=== PATIENT | male | born 1985 | race Caucasian/White ===

== ENCOUNTER 2019-06-25 17:08 | Emergency (ER) | payer OTHER ==
[~2019-06-25] VITALS: Ht 175.3 cm; Wt 86.2 kg
[2019-06-25] MEDS ORDERED: KEFLEX500 M1 PO (19:57)
[2019-06-25] MEDS ORDERED: PERCOCET 5-3251 EACH PO (20:00)
[2019-06-25 20:09] VITALS: BP 130/87
--- NOTE | 2019-06-27 20:18 | O ---
[facility] [address] [address] OPERATIVE REPORT Name: MIKALA TERRELL Room #: DEP Ramiro#: [id number] Admission: 06/25/19 Attend Phys: Discharge: 06/25/19 Date of : 83 Report #: [id number] THIS REPORT FOR: //name// CC: Damon Sharma physician/PCP DATE OF SERVICE: 06/25/2019 SERVICE: Orthopedics. FACILITY: [facility]. SURGEON: Rafal Daniel MD FIELD TECHNICIAN: None. PREOPERATIVE DIAGNOSES: 1. Table saw injury, left hand. 2. Open fractures of the left thumb, proximal and middle phalanx. 3. Soft tissue injury, left index finger. POSTOPERATIVE DIAGNOSES: 1. Table saw injury, left hand. 2. Open fractures of the left thumb, proximal and middle phalanx. 3. Soft tissue injury, left index finger. PROCEDURES: 1. Irrigation and debridement to bone, left thumb. 2. Irrigation and debridement of skin, subcutaneous tissues and fascia, left index finger. COMPLICATIONS: None. DRAINS: None. SPECIMENS: None. FINDINGS: 1. Ruptured flexor tendon and comminuted fractures of the thumb. 2. Flexion intact to the index finger, deficient in extension. HISTORY AND INDICATIONS: The patient is a 34-year-old right-hand dominant gentleman who sustained a table saw injury to his left hand at work. 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 A board was stuck, he went to release it and then at that point the board released and pulled his finger in as he was pushing and he injured his index and thumb [facility] [address] [place] [address] OPERATIVE REPORT Name: MIKALA TERRELL Room #: DEP Ramiro#: [id number] Admission: 06/25/19 Attend Phys: Discharge: 06/25/19 Date of : 83 Report #: [id number] fingers. He was brought to [facility] where he was evaluated by the Emergency Room staff and x-rays were obtained. Antibiotics were started. Tetanus was administered. Orthopedics was consulted. He was given digital blocks by the ER staff for pain control prior to my evaluation, so sensory examination was unable to be performed by me. It was performed by the Emergency Room staff. My plan is for initial treatment with definitive treatment to be performed at a later with the Hand Surgery Service. PROCEDURE IN DETAIL: After left upper extremity was correctly identified as the operative extremity, we proceeded with open irrigation and debridement. I used irrigation and soap and water to thoroughly debride the volar and dorsal side of the index and thumb finger. A temporary tourniquet was placed to allow for hemostasis. The silver nitrate was used to perform hemostasis on the radial sided vessel of the index finger. The index nail and soft tissues were taken back to about the level of the proximal phalanx. These were devitalized and were excised sharply. The deeper layers did appear to be healthy and clean, so I preserved the remaining tissue other than the shredded skin on the index finger. There were no lacerations, so no suture repair to be performed. The thumb was explored and irrigated and cleaned in a similar fashion. There was shredded skin on the volar side of the thumb with a stellate shaped laceration that was essentially configured in a Y-shape. He had a sagittal split from the tip of the thumb to the base of the index finger that was essentially full thickness and then on the volar side split around the level of the IP joint. There was crepitus. I was able to irrigate down to the level of the bone. I retained all bony fragments. The tissue that had been devitalized at the skin level on the volar side was excised sharply. I retained as much tissue as possible. Closure was obtained with a series of 5-0 nylon sutures, repairing both the sagittal split and the volar stellate laceration. Hemostasis was achieved. A Xeroform gauze was then placed over both fingers and then a well-padded radial gutter splint was placed and immobilized both the index and the thumb and finger. There were no complications. All counts were reported as correct. <ELECTRONICALLY SIGNED> By: Rafal Daniel MD 06/27/19 2018 1217 1240 Rafal Daniel MD /nt
== END 2019-06-25 20:12 | disposition home or self-care (01) ==
LOC: ER 17:08
DX: S62.522B Displaced fracture of distal phalanx of left thumb, initial encounter for open fracture (principal); W26.8XXA Contact with other sharp object(s), not elsewhere classified, initial encounter; Y93.89 Activity, other specified; Y92.89 Other specified places as the place of occurrence of the external cause; Y99.8 Other external cause status